=== PATIENT | female | born 1935 | race Caucasian/White ===

== ENCOUNTER 2018-04-04 11:11 | Inpatient (IN) | payer MEDICARE ==
[2018-04-04 11:15] VITALS: BMI 16.6
[2018-04-04] MEDS ORDERED: Sodium Chloride 0.9% 500 ML IV STA (11:29)
[2018-04-04 12:02] LABS: BASO % 0.3 % (0.0-2.0); EOS % 0.2 % (0.0-4.0); HEMOGLOBIN 11.5 g/dL (11.0-16.0); LYMPH # 0.7 K/uL (1.0-4.3); LYMPH % 10.8 % (20.0-40.0); MEAN CORPUSCULAR HEMOGLOBIN 29.8 pg (27.0-31.0); MEAN CORPUSCULAR HGB CONC 33.3 g/dL (33.0-37.0); MEAN PLATELET VOLUME 9.7 fL (7.2-11.7); MONO # 0.3 K/uL (0.0-0.8); MONO % 4.3 % (0.0-10.0); NEUT # 5.3 K/uL (1.8-7.0); NEUT % 84.4 % (50.0-75.0); RBC 3.87 Mil/uL (3.80-5.20); RED CELL DISTRIBUTION WIDTH 13.2 % (11.5-14.5)
[2018-04-04 12:03] LABS: MEAN CELL VOLUME 89.5 fL (81.0-99.0); WHITE BLOOD COUNT 6.3 K/uL (4.8-10.8)
[2018-04-04 12:12] LABS: INR 1.1; PROTHROMBIN TIME 11.8 SECONDS (9.7-12.2)
[2018-04-04 12:22] LABS: ALB/GLOB RATIO 1.5 (1.0-2.1); ALBUMIN 4.1 g/dL (3.5-5.0); ALT/SGPT 32 U/L (9-52); AST/SGOT 19 U/L (14-36); BLOOD UREA NITROGEN 17 mg/dL (7-17); CALCIUM 8.8 mg/dl (8.6-10.4); GFR NON-AFRICAN AMERICAN 60
--- NOTE | 2018-04-04 12:43 | C.PDOC ---
History Of Present Illness 83 y/o female presents to the ER complaining of abdominal cramping and back pain. Contrary to triage, patient states that she does not have "skin cancer and undergoing chemotherapy." She reports that she has history of colon cancer and she is currently undergoing radiation therapy. She missed her radiation therapy yesterday and today because she had abdominal cramping and rectal bleeding. As per daughter, patient had blood clots without stool. Of note, patient's PMD is and GI is . Time Seen by Provider: 04/04/18 11:28 Chief Complaint (Nursing): GI Problem History Per: Patient, Family History/Exam Limitations: no limitations Onset/Duration Of Symptoms: Days Current Symptoms Are (Timing): Still Present Severity: Moderate Past Medical History Reviewed: Historical Data, Nursing Documentation, Vital Signs Vital Signs: Last Vital Signs Temp 97.8 F 04/04/18 15:54 Pulse 84 04/04/18 15:54 Resp 20 04/04/18 15:54 BP 110/58 L 04/04/18 15:54 Pulse Ox 99 04/04/18 17:52 - Medical History PMH: Arthritis, Asthma, Colonic Polyps, Diabetes, Gastritis (MILD), HIV, HTN, Hypercholesterolemia Denies: Chronic Kidney Disease, TIA Other Surgeries: Hx of surgeries - [facility] Procedures GAIT TRAINING/FUNCTIONAL AMBULATION TREATMENT (12/22/15) HOME MANAGEMENT TREATMENT (12/22/15) THERAPEUTIC EXERCISE TREATMENT OF MUSCULOSK LOW BACK/LE (12/22/15) Family History: States: No Known Family Hx - Social History Hx Tobacco Use: No Hx Alcohol Use: No Hx Substance Use: No - Immunization History Hx Tetanus Toxoid Vaccination: Yes Hx Influenza Vaccination: No Hx Pneumococcal Vaccination: Yes Review Of Systems Except As Marked, All Systems Reviewed And Found Negative. Constitutional: Negative for: Fever, Chills Gastrointestinal: Positive for: Abdominal Pain, Hematochezia. Negative for: Nausea, Vomiting Physical Exam - Physical Exam Appears: Other (clinically ill, very thin) Skin: Normal Color, Warm, Dry Head: Atraumatic, Normacephalic Eye(s): bilateral: Normal Inspection Nose: Normal Oral Mucosa: Moist Neck: Supple Chest: Symmetrical Cardiovascular: Rhythm Regular Respiratory: Normal Breath Sounds, No Rales, No Rhonchi, No Wheezing Gastrointestinal/Abdominal: Normal Exam, Soft, No Tenderness, No Guarding, No Rebound Rectal: Other (blood in stool, no active bleeding) Neurological/Psych: Oriented x3, Normal Speech ED Course And Treatment - Laboratory Results Result Diagrams: 04/04/18 11:57 04/04/18 11:57 O2 Sat by Pulse Oximetry: 99 (RA) Pulse Ox Interpretation: Normal - CT Scan/US Abdomen/pelvis CT Other Rad Studies (CT/US): Read By Radiologist, Radiology Report Reviewed CT/US Interpretation: Accession No. : [id number]. Patient Name / ID : LEXY Jimenez / [id number]. Exam Date : 04/04/2018 16:16:37 ( Approved ). Study Comment : Sex / Age : F / [id number]. Creator : Carmen Rangel. Dictator : Myles Nelson MD. Corn Picker : Educational Assistant Teacher : Myles Nelson MD. Approver2 : Report Date : 04/04/2018 16:31:14. My Comment : . Date of service: 04/04/2018. PROCEDURE: CT Abdomen and Pelvis with contrast. HISTORY : abd pain/rectal bleeding. COMPARISON: None. TECHNIQUE: Contrast dose: 100 mL Visipaque 320. Radiation dose: Total exam DLP = 202.2 mGy-cm. This CT exam was performed using one or more of the following dose reduction techniques : Automated exposure control, adjustment of the mA and/or kV according to patient size, and/or use of iterative reconstruction technique. FINDINGS: LOWER THORAX: Unremarkable. LIVER: Unremarkable. No gross lesion or ductal dilatation. GALLBLADDER AND BILE DUCTS: Unremarkable. PANCREAS: Unremarkable. No gross lesion or ductal dilatation. SPLEEN: Unremarkable. ADRENALS: Unremarkable. No mass. KIDNEYS AND URETERS: Unremarkable. No hydronephrosis. No solid mass. VASCULATURE: Unremarkable. No aortic aneurysm. BOWEL: Marked circumferential symmetric rectal wall thickening. Extensive amount of retained colonic stool. Nonspecific prominence of the ileocecal valve. No obstruction. No gross mural thickening. APPENDIX: Normal appendix. PERITONEUM: Unremarkable. No free fluid. No free air. LYMPH NODES: Unremarkable. No enlarged lymph nodes. BLADDER: Unremarkable. REPRODUCTIVE: Unremarkable. BONES: No acute fracture. Degenerative changes. OTHER FINDINGS : None. IMPRESSION: Marked circumferential symmetric rectal wall thickening likely related to proctitis with malignancy not excluded. Direct visualization could be considered after resolution of the acute issues. Extensive amount of retained colonic stool. Nonspecific prominence of the ileocecal valve. Progress Note: Labs ordered. Patient treated with Morphine IV and IV Fluids. Case discussed with , GI who requested CT of abdomen. Result of CT was d/w . Case was d/w patient's PMD who instructed to admit patient to 's service for observation. Case was d/w who accepted patient to his service for observation. Disposition - Disposition Disposition Time: 17:51 Condition: FAIR - Clinical Impression Clinical Impression: Rectal bleeding, Colon cancer - PA / HARNESSMAKER / Resident Statement MD/DO has reviewed & agrees with the documentation as recorded. - Scribe Statement The provider has reviewed the documentation as recorded by the Isabel Wilson Provider Attestation All medical record entries made by the Isabel were at my direction and personally dictated by me. I have reviewed the chart and agree that the record accurately reflects my personal performance of the history, physical exam, medical decision making, and the department course for this patient. I have also personally directed, reviewed, and agree with the discharge instructions and disposition. Decision To Admit - Pt Status Changed To: Hospital Disposition Of: Observation - . Bed Request Type: Regular Admitting Physician: Christopher Argueta Patient Diagnosis: Rectal bleeding, Colon cancer
[2018-04-04] MEDS ORDERED: Iohexol 240 (50 ml) PO STA (13:13)
[2018-04-04] MEDS ORDERED: Iohexol 240 (50 ml) ONE (13:39)
[2018-04-04] MEDS ORDERED: Iodixanol 320 MG/ML 100 ML BOTTLE IV ONE (15:59)
--- NOTE | 2018-04-04 16:46 | CT ---
Date of service: 04/04/2018 PROCEDURE: CT Abdomen and Pelvis with contrast HISTORY: abd pain/rectal bleeding COMPARISON: None. TECHNIQUE: Contrast dose: 100 mL Visipaque 320 Radiation dose: Total exam DLP = 202.2 mGy-cm. This CT exam was performed using one or more of the following dose reduction techniques: Automated exposure control, adjustment of the mA and/or kV according to patient size, and/or use of iterative reconstruction technique. FINDINGS: LOWER THORAX: Unremarkable. LIVER: Unremarkable. No gross lesion or ductal dilatation. GALLBLADDER AND BILE DUCTS: Unremarkable. PANCREAS: Unremarkable. No gross lesion or ductal dilatation. SPLEEN: Unremarkable. ADRENALS: Unremarkable. No mass. KIDNEYS AND URETERS: Unremarkable. No hydronephrosis. No solid mass. VASCULATURE: Unremarkable. No aortic aneurysm. BOWEL: Marked circumferential symmetric rectal wall thickening. Extensive amount of retained colonic stool. Nonspecific prominence of the ileocecal valve. No obstruction. No gross mural thickening. APPENDIX: Normal appendix. PERITONEUM: Unremarkable. No free fluid. No free air. LYMPH NODES: Unremarkable. No enlarged lymph nodes. BLADDER: Unremarkable. REPRODUCTIVE: Unremarkable. BONES: No acute fracture. Degenerative changes. OTHER FINDINGS: None. IMPRESSION: Marked circumferential symmetric rectal wall thickening likely related to proctitis with malignancy not excluded. Direct visualization could be considered after resolution of the acute issues. Extensive amount of retained colonic stool. Nonspecific prominence of the ileocecal valve.
[2018-04-04] MEDS: Sodium Chloride 0.9% 1,000 ML IV SCH (21:48)
[2018-04-05 07:01] LABS: BASO % 0.5 % (0.0-2.0); EOS # 0.1 K/uL (0.0-0.7); HEMOGLOBIN 10.3 g/dL (11.0-16.0); LYMPH # 1.2 K/uL (1.0-4.3); LYMPH % 21.9 % (20.0-40.0); MEAN CELL VOLUME 89.6 fL (81.0-99.0); MEAN CORPUSCULAR HGB CONC 33.5 g/dL (33.0-37.0); MEAN PLATELET VOLUME 9.6 fL (7.2-11.7); MONO # 0.5 K/uL (0.0-0.8); MONO % 9.9 % (0.0-10.0); NEUT # 3.7 K/uL (1.8-7.0); NEUT % 66.7 % (50.0-75.0); NRBC % 0.1 % (0.0-2.0); RBC 3.43 Mil/uL (3.80-5.20); RED CELL DISTRIBUTION WIDTH 13.7 % (11.5-14.5); WHITE BLOOD COUNT 5.5 K/uL (4.8-10.8)
[2018-04-05] MEDS: Sodium Chloride 0.9% 1,000 ML IV SCH ×2 (07:15→18:00)
[2018-04-05] MEDS: Lopinavir/Ritonavir Tab PO SCH ×2 (09:29→17:31)
--- NOTE | 2018-04-05 11:05 | CP.PCM.CON ---
History of Present Illness - History of Present Illness History of Present Illness: This is an 83 year old woman with history of squamous cell carcinoma of the anus admitted with rectal bleeding. Patient was in her usual state of health until November of this year when she noted constipation, bright red blood per rectum, and rectal pain after defecation. Colonoscopy 01/20/18 showed a circumferential lesion of the distal rectum; biopsy showed squamous cell carcinoma. She was evaluated by Dr. Méndez and Dr. Aguilar, and treatment was initiated on 02/17/18 with Xeloda and radiation to the anal region and lower pelvic lymph nodes. Patient did well until the day prior to admission, when she began to pass bright red blood per rectum. She has the urge to defecate frequently, and continues to pass blood every hour without stool. she complains of soreness in the lower abdomen and rectum. She denies having fever, nausea, vomiting, difficulty swallowing, heartburn. Hemoglobin was 11.5 on admission, and was 10.3 when repeated this morning. Review of Systems - Review of Systems All systems: reviewed and no additional remarkable complaints except - Constitutional Constitutional: absent: Chills, Fever - Gastrointestinal Gastrointestinal: Abdominal Pain, Hematochezia. absent: Dysphagia, Heartburn, Nausea, Vomiting Past Patient History - Tetanus Immunizations Tetanus Immunization: Unknown - Past Medical History & Family History Past Medical History?: Yes - Past Social History Smoking Status: Never Smoked - CARDIAC Hx Hypercholesterolemia: Yes Hx Hypertension: Yes - PULMONARY Hx Asthma: Yes - NEUROLOGICAL Hx Transient Ischemic Attacks (TIA): No - HEENT Hx HEENT Problems: No - RENAL Hx Chronic Kidney Disease: No - ENDOCRINE/METABOLIC Hx Endocrine Disorders: Yes Hx Diabetes Mellitus Type 2: Yes - HEMATOLOGICAL/ONCOLOGICAL Hx Human Immunodeficiency Virus (HIV): Yes - INTEGUMENTARY Hx Dermatological Problems: No - MUSCULOSKELETAL/RHEUMATOLOGICAL Hx Arthritis: Yes - GASTROINTESTINAL Hx Gastritis: Yes (MILD) - GENITOURINARY/GYNECOLOGICAL Hx Genitourinary Disorders: Yes Hx Urinary Tract Infection: Yes - PSYCHIATRIC Hx Substance Use: No - SURGICAL HISTORY Hx Surgeries: Yes Hx Hysterectomy: Yes - ANESTHESIA Hx Anesthesia: Yes Hx Anesthesia Reactions: No Hx Malignant Hyperthermia: No Meds Allergies/Adverse Reactions: Allergies Allergy/AdvReac Type Severity Reaction Status Date / Time Penicillins Allergy Verified 04/04/18 11:15 - Medications Medications: Current Medications Home Med (Patient's Own Medication) 200 tab PO DAILY [facility] Stop: 04/26/18 10:01 Sodium Chloride (Sodium Chloride 0.9%) 1,000 mls @ 100 mls/hr IV .Q10H [facility] Last Admin: 04/05/18 07:15 Dose: 100 mls/hr Lopinavir/Ritonavir (Kaletra 200-50 Mg) 2 cap PO BID [facility] PRN Reason: Protocol Stop: 04/26/18 10:01 Last Admin: 04/05/18 09:29 Dose: Not Given Morphine Sulfate (Morphine) 2 mg IVP Q8 PRN PRN Reason: Pain, moderate (4-7) Last Admin: 04/05/18 01:00 Dose: 2 mg Nitrofurantoin Macrocrystals (Macrobid) 100 mg PO Q12H [facility] PRN Reason: Protocol Stop: 04/10/18 10:01 Last Admin: 04/05/18 09:29 Dose: Not Given Pantoprazole Sodium (Protonix Inj) 40 mg IVP Q12H [facility] Last Admin: 04/05/18 09:31 Dose: 40 mg Physical Exam - Constitutional Appears: No Acute Distress - Head Exam Head Exam: ATRAUMATIC, NORMOCEPHALIC - Eye Exam Eye Exam: EOMI, PERRL - Neck Exam Neck exam: Negative for: Lymphadenopathy, Thyromegaly - Respiratory Exam Respiratory Exam: NORMAL BREATHING PATTERN. absent: Rales, Rhonchi, Wheezes - Cardiovascular Exam Cardiovascular Exam: REGULAR RHYTHM, +S1, +S2. absent: Gallop, Rubs, Systolic Murmur - GI/Abdominal Exam GI & Abdominal Exam: Normal Bowel Sounds, Soft. absent: Mass, Organomegaly, Tenderness - Rectal Exam Rectal Exam: Deferred - Extremities Exam Extremities exam: Negative for: calf tenderness, pedal edema Results - Vital Signs Recent Vital Signs: Last Vital Signs Temp 97.2 F L 04/04/18 23:19 Pulse 62 04/04/18 23:19 Resp 18 04/04/18 23:19 BP 120/70 04/04/18 23:19 Pulse Ox 97 04/05/18 07:00 - Labs Result Diagrams: 04/05/18 06:46 04/04/18 11:57 Labs: Laboratory Results - last 24 hr 04/04/18 04/04/18 04/04/18 11:57 11:57 11:57 WBC 6.3 D RBC 3.87 Hgb 11.5 Hct 34.6 MCV 89.5 D MCH 29.8 MCHC 33.3 RDW 13.2 Plt Count 193 MPV 9.7 Neut % (Auto) 84.4 H Lymph % (Auto) 10.8 L [place] % (Auto) 4.3 Eos % (Auto) 0.2 Baso % (Auto) 0.3 Neut # (Auto) 5.3 Lymph # (Auto) 0.7 L [place] # (Auto) 0.3 Eos # (Auto) 0.0 Baso # (Auto) 0.0 PT 11.8 INR 1.1 APTT 30 Sodium Potassium Chloride Carbon Dioxide Anion Gap BUN Creatinine Est GFR ( Amer) Est GFR (Non-Af Amer) POC Glucose (mg/dL) Random Glucose Calcium Total Bilirubin AST ALT Alkaline Phosphatase Total Protein Albumin Globulin Albumin/Globulin Ratio Stool Occult Blood Positive H Blood Type Antibody Screen 04/04/18 04/04/18 04/04/18 11:57 11:57 21:26 WBC RBC Hgb Hct MCV MCH MCHC RDW Plt Count MPV Neut % (Auto) Lymph % (Auto) [place] % (Auto) Eos % (Auto) Baso % (Auto) Neut # (Auto) Lymph # (Auto) [place] # (Auto) Eos # (Auto) Baso # (Auto) PT INR APTT Sodium 140 Potassium 4.6 Chloride 105 Carbon Dioxide 25 Anion Gap 15 BUN 17 Creatinine 0.9 Est GFR ( Amer) > 60 Est GFR (Non-Af Amer) 60 POC Glucose (mg/dL) 134 H Random Glucose 146 H Calcium 8.8 Total Bilirubin 0.5 AST 19 ALT 32 Alkaline Phosphatase 90 Total Protein 6.7 Albumin 4.1 Globulin 2.7 Albumin/Globulin Ratio 1.5 Stool Occult Blood Blood Type B POSITIVE Antibody Screen Negative 04/05/18 04/05/18 06:46 07:13 WBC 5.5 RBC 3.43 L Hgb 10.3 L Hct 30.7 L MCV 89.6 MCH 30.0 MCHC 33.5 RDW 13.7 Plt Count 193 MPV 9.6 Neut % (Auto) 66.7 Lymph % (Auto) 21.9 [place] % (Auto) 9.9 Eos % (Auto) 1.0 Baso % (Auto) 0.5 Neut # (Auto) 3.7 Lymph # (Auto) 1.2 [place] # (Auto) 0.5 Eos # (Auto) 0.1 Baso # (Auto) 0.0 PT INR APTT Sodium Potassium Chloride Carbon Dioxide Anion Gap BUN Creatinine Est GFR ( Amer) Est GFR (Non-Af Amer) POC Glucose (mg/dL) 113 H Random Glucose Calcium Total Bilirubin AST ALT Alkaline Phosphatase Total Protein Albumin Globulin Albumin/Globulin Ratio Stool Occult Blood Blood Type Antibody Screen Assessment & Plan (1) Rectal bleeding Assessment and Plan: Patient is nearing completion of the course of Xeloda plus radiation. 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 Will check for infection with the appropriate stool studies. There are no approved treatments for acute radiation proctitis, though short chain fatty acid enemas ( sodium butyrate) have been used. Follow CBC. Status: Acute
--- NOTE | 2018-04-05 17:54 | CP.PCM.CON ---
History of Present Illness - History of Present Illness History of Present Illness: INFECTIOUS DISEASE CONSULTATION TOMASZ THOMPSON MD, FACP 04/05/2018 CHART REVIEWED PT EXAMINED CASE DISCUSSED 3T 359-A This is an 83 year old woman with history of squamous cell carcinoma of the anus admitted with rectal bleeding. Patient was in her usual state of health until November of this year when she noted constipation, bright red blood per rectum, and rectal pain after defecation. Colonoscopy 01/20/18 showed a circumferential lesion of the distal rectum; biopsy showed squamous cell carcinoma. She was evaluated by Dr. Méndez and Dr. Aguilar, and treatment was initiated on 02/17/18 with Xeloda and radiation to the anal region and lower pelvic lymph nodes. Patient did well until the day prior to admission, when she began to pass bright red blood per rectum. She has the urge to defecate frequently, and continues to pass blood every hour without stool. she complains of soreness in the lower abdomen and rectum. She denies having fever, nausea, vomiting, difficulty swallowing, heartburn. Hemoglobin was 11.5 on admission, and was 10.3 when repeated this morning. 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 THANK YOU. WILL RESEE NEEDED. Past Patient History - Tetanus Immunizations Tetanus Immunization: Unknown - Past Medical History & Family History Past Medical History?: Yes - Past Social History Smoking Status: Never Smoked - CARDIAC Hx Hypercholesterolemia: Yes Hx Hypertension: Yes - PULMONARY Hx Asthma: Yes - NEUROLOGICAL Hx Transient Ischemic Attacks (TIA): No - HEENT Hx HEENT Problems: No - RENAL Hx Chronic Kidney Disease: No - ENDOCRINE/METABOLIC Hx Endocrine Disorders: Yes Hx Diabetes Mellitus Type 2: Yes - HEMATOLOGICAL/ONCOLOGICAL Hx Human Immunodeficiency Virus (HIV): Yes - INTEGUMENTARY Hx Dermatological Problems: No - MUSCULOSKELETAL/RHEUMATOLOGICAL Hx Arthritis: Yes - GASTROINTESTINAL Hx Gastritis: Yes (MILD) - GENITOURINARY/GYNECOLOGICAL Hx Genitourinary Disorders: Yes Hx Urinary Tract Infection: Yes - PSYCHIATRIC Hx Substance Use: No - SURGICAL HISTORY Hx Surgeries: Yes Hx Hysterectomy: Yes - ANESTHESIA Hx Anesthesia: Yes Hx Anesthesia Reactions: No Hx Malignant Hyperthermia: No Meds Allergies/Adverse Reactions: Allergies Allergy/AdvReac Type Severity Reaction Status Date / Time Penicillins Allergy Verified 04/04/18 11:15 - Medications Medications: Current Medications Home Med (Patient's Own Medication) 200 tab PO DAILY [facility] Stop: 04/26/18 10:01 Sodium Chloride (Sodium Chloride 0.9%) 1,000 mls @ 100 mls/hr IV .Q10H [facility] Last Admin: 04/05/18 07:15 Dose: 100 mls/hr Lopinavir/Ritonavir (Kaletra 200-50 Mg) 2 cap PO BID [facility] PRN Reason: Protocol Stop: 04/26/18 10:01 Last Admin: 04/05/18 17:31 Dose: 2 cap Morphine Sulfate (Morphine) 2 mg IVP Q8 PRN PRN Reason: Pain, moderate (4-7) Last Admin: 04/05/18 14:43 Dose: 2 mg Nitrofurantoin Macrocrystals (Macrobid) 100 mg PO Q12H [facility] PRN Reason: Protocol Stop: 04/10/18 10:01 Last Admin: 04/05/18 09:29 Dose: Not Given Pantoprazole Sodium (Protonix Inj) 40 mg IVP Q12H [facility] Last Admin: 04/05/18 09:31 Dose: 40 mg Results - Vital Signs Recent Vital Signs: Last Vital Signs Temp 99.0 F 04/05/18 16:31 Pulse 81 04/05/18 16:31 Resp 18 04/05/18 16:31 BP 107/59 L 04/05/18 16:31 Pulse Ox 98 04/05/18 16:31 - Labs Result Diagrams: 04/05/18 06:46 04/04/18 11:57 Labs: Laboratory Results - last 24 hr 04/04/18 04/05/18 04/05/18 21:26 06:46 07:13 WBC 5.5 RBC 3.43 L Hgb 10.3 L Hct 30.7 L MCV 89.6 MCH 30.0 MCHC 33.5 RDW 13.7 Plt Count 193 MPV 9.6 Neut % (Auto) 66.7 Lymph % (Auto) 21.9 [place] % (Auto) 9.9 Eos % (Auto) 1.0 Baso % (Auto) 0.5 Neut # (Auto) 3.7 Lymph # (Auto) 1.2 [place] # (Auto) 0.5 Eos # (Auto) 0.1 Baso # (Auto) 0.0 ESR 9 POC Glucose (mg/dL) 134 H 113 H C-Reactive Protein Stool Leukocytes, Qual C. difficile Ag & Toxin 04/05/18 04/05/18 04/05/18 11:09 12:49 14:57 WBC RBC Hgb Hct MCV MCH MCHC RDW Plt Count MPV Neut % (Auto) Lymph % (Auto) [place] % (Auto) Eos % (Auto) Baso % (Auto) Neut # (Auto) Lymph # (Auto) [place] # (Auto) Eos # (Auto) Baso # (Auto) ESR POC Glucose (mg/dL) 111 H C-Reactive Protein 6.00 Stool Leukocytes, Qual Positive H C. difficile Ag & Toxin 04/05/18 04/05/18 14:57 16:54 WBC RBC Hgb Hct MCV MCH MCHC RDW Plt Count MPV Neut % (Auto) Lymph % (Auto) [place] % (Auto) Eos % (Auto) Baso % (Auto) Neut # (Auto) Lymph # (Auto) [place] # (Auto) Eos # (Auto) Baso # (Auto) ESR POC Glucose (mg/dL) 105 C-Reactive Protein Stool Leukocytes, Qual C. difficile Ag & Toxin Negative
--- NOTE | 2018-04-05 20:35 | CP.PCM.HP ---
History of Present Illness - History of Present Illness History of Present Illness: Chief command: Rectal bleeding and pain HPI: 83-year-old female with a history of asthma, history of diabetes, gastritis, HIV , hypertension, hypercholesteremia, recently diagnosed with the annual cancer, status post radiation treatment currently ongoing. Patient for the last 3 days was unable to do the radiation treatment because of the pain in the pelvic area, associated with episodes of diarrhea, with also increasingly bleeding noted. Each time patient is having difficulty in going to the bathroom, associated with this some pain, and also diarrhea like and mostly some blood noted with that. She also has a some discomfort in the lower abdominal area. She is feeling extremely uncomfortable. She was not able to continue the radiation because of that for the last 3 days. Patient also scheduled to have chemotherapy next week. She is not having any abdominal pain otherwise, no chest pain, no shortness of breath, otherwise he is feeling well, but poor appetite noted. Patient has a history of diabetes also has a history of HIV on medications Past medical history: Diabetes, hypertension, hypercholesteremia, history of asthma as well as history of HIV Surgical history Patient underwent a colonoscopy recently. Family history noncontributory Medications reviewed from the chart. Personal history: Nonsmoker nonalcoholic. Review of system: Patient is somewhat feeling sick. Abdominal pain, diarrhea, blurred noted. No nausea vomiting. No chest pain or shortness of breath On examination: Vital signs stable. Afebrile. Blood pressure 120/70. Heart rate is 80 6P Respiration is 18 saturation 98% Chest good air entry bilaterally regular heart sound nontender abdomen, minimal lower abdominal discomfort noted. No pedal edema Labs reviewed CMP is normal. Mild elevation of the glucose noted. Hemoglobin is 11.5. Platelet is normal. PT/INR is normal. CT scan of the abdomen and pelvis showing evidence of rectal wall thickening, likely proctitis, in the setting of ranal cancer, radiation recent, radiation proctitis cannot be ruled out. Assessment and recommendation: 83-year-old female with a history of hypertension diabetes hypercholesteremia, history of HIV recently diagnosed with anal cancer, status post current radiation, now suffering from rectal bleeding. Likely differential diagnosis includes radiation proctitis. Underlying infectious process cannot be ruled out. Will get the GI, infectious disease evaluation. Oncological follow-up. Monitor the hemoglobin. DVT GI prophylaxis, will follow the patient. Present on Admission - Present on Admission Any Indicators Present on Admission: No History of DVT/PE: No History of Uncontrolled Diabetes: No Urinary Catheter: No Decubitus Ulcer Present: No Past Patient History - Tetanus Immunizations Tetanus Immunization: Unknown - Past Medical History & Family History Past Medical History?: Yes - Past Social History Smoking Status: Never Smoked - CARDIAC Hx Hypercholesterolemia: Yes Hx Hypertension: Yes - PULMONARY Hx Asthma: Yes - NEUROLOGICAL Hx Transient Ischemic Attacks (TIA): No - HEENT Hx HEENT Problems: No - RENAL Hx Chronic Kidney Disease: No - ENDOCRINE/METABOLIC Hx Endocrine Disorders: Yes Hx Diabetes Mellitus Type 2: Yes - HEMATOLOGICAL/ONCOLOGICAL Hx Human Immunodeficiency Virus (HIV): Yes - INTEGUMENTARY Hx Dermatological Problems: No - MUSCULOSKELETAL/RHEUMATOLOGICAL Hx Arthritis: Yes - GASTROINTESTINAL Hx Gastritis: Yes (MILD) - GENITOURINARY/GYNECOLOGICAL Hx Genitourinary Disorders: Yes Hx Urinary Tract Infection: Yes - PSYCHIATRIC Hx Substance Use: No - SURGICAL HISTORY Hx Surgeries: Yes Hx Hysterectomy: Yes - ANESTHESIA Hx Anesthesia: Yes Hx Anesthesia Reactions: No Hx Malignant Hyperthermia: No Meds Allergies/Adverse Reactions: Allergies Allergy/AdvReac Type Severity Reaction Status Date / Time Penicillins Allergy Verified 04/04/18 11:15 Results - Vital Signs Recent Vital Signs: Last Vital Signs Temp 99.0 F 04/05/18 16:31 Pulse 81 04/05/18 16:31 Resp 18 04/05/18 16:31 BP 107/59 L 04/05/18 16:31 Pulse Ox 98 04/05/18 16:31 - Labs Result Diagrams: 04/05/18 06:46 04/04/18 11:57 Labs: Laboratory Results - last 24 hr 04/04/18 04/05/18 04/05/18 21:26 06:46 07:13 WBC 5.5 RBC 3.43 L Hgb 10.3 L Hct 30.7 L MCV 89.6 MCH 30.0 MCHC 33.5 RDW 13.7 Plt Count 193 MPV 9.6 Neut % (Auto) 66.7 Lymph % (Auto) 21.9 [place] % (Auto) 9.9 Eos % (Auto) 1.0 Baso % (Auto) 0.5 Neut # (Auto) 3.7 Lymph # (Auto) 1.2 [place] # (Auto) 0.5 Eos # (Auto) 0.1 Baso # (Auto) 0.0 ESR 9 POC Glucose (mg/dL) 134 H 113 H C-Reactive Protein Stool Leukocytes, Qual C. difficile Ag & Toxin 04/05/18 04/05/18 04/05/18 11:09 12:49 14:57 WBC RBC Hgb Hct MCV MCH MCHC RDW Plt Count MPV Neut % (Auto) Lymph % (Auto) [place] % (Auto) Eos % (Auto) Baso % (Auto) Neut # (Auto) Lymph # (Auto) [place] # (Auto) Eos # (Auto) Baso # (Auto) ESR POC Glucose (mg/dL) 111 H C-Reactive Protein 6.00 Stool Leukocytes, Qual Positive H C. difficile Ag & Toxin 04/05/18 04/05/18 14:57 16:54 WBC RBC Hgb Hct MCV MCH MCHC RDW Plt Count MPV Neut % (Auto) Lymph % (Auto) [place] % (Auto) Eos % (Auto) Baso % (Auto) Neut # (Auto) Lymph # (Auto) [place] # (Auto) Eos # (Auto) Baso # (Auto) ESR POC Glucose (mg/dL) 105 C-Reactive Protein Stool Leukocytes, Qual C. difficile Ag & Toxin Negative
--- NOTE | 2018-04-05 20:37 | CP.PCM.PN ---
Subjective - Date & Time of Evaluation Date of Evaluation: 04/05/18 Time of Evaluation: 20:35 - Subjective Subjective: Patient today having minimal pain. Still having some bleeding. No chest pain or shortness of breath. Seen by GI. Seen by ID On examination: Patient is vital signs stable. Chest bilateral good air entry. Regular heart sound. Nontender abdomen. The episodes of bleeding still present Hemoglobin is stable today. We'll continue to monitor. Follow-up with the GI. Objective - Vital Signs/Intake and Output Vital Signs (last 24 hours): Temp Pulse Resp BP Pulse Ox 99.0 F 81 18 107/59 L 98 04/05/18 16:31 04/05/18 16:31 04/05/18 16:31 04/05/18 16:31 04/05/18 16:31 Intake and Output: 04/05/18 04/06/18 18:59 06:59 Intake Total 800 Output Total 6 Balance 794 - Medications Medications: Current Medications Home Med (Patient's Own Medication) 200 tab PO DAILY [facility] Stop: 04/26/18 10:01 Sodium Chloride (Sodium Chloride 0.9%) 1,000 mls @ 100 mls/hr IV .Q10H [facility] Last Admin: 04/05/18 07:15 Dose: 100 mls/hr Lopinavir/Ritonavir (Kaletra 200-50 Mg) 2 cap PO BID LISA PRN Reason: Protocol Stop: 04/26/18 10:01 Last Admin: 04/05/18 17:31 Dose: 2 cap Morphine Sulfate (Morphine) 2 mg IVP Q8 PRN PRN Reason: Pain, moderate (4-7) Last Admin: 04/05/18 14:43 Dose: 2 mg Nitrofurantoin Macrocrystals (Macrobid) 100 mg PO Q12H LISA PRN Reason: Protocol Stop: 04/10/18 10:01 Last Admin: 04/05/18 09:29 Dose: Not Given Pantoprazole Sodium (Protonix Inj) 40 mg IVP Q12H [facility] Last Admin: 04/05/18 09:31 Dose: 40 mg - Labs Labs: 04/05/18 06:46 04/04/18 11:57 PT 11.8 SECONDS (9.7-12.2) 04/04/18 11:57 INR 1.1 04/04/18 11:57 APTT 30 SECONDS (21-34) 04/04/18 11:57
--- NOTE | 2018-04-05 21:40 | CP.PCM.CON ---
History of Present Illness - History of Present Illness History of Present Illness: 83 yo woman with a history of newly diagnosed, localized rectal cancer, admitted with bloody diarrhea, associated with pain. Her bowel movements are still bloody, but her Hgb has not dropped significantly so far. She denies fever, chills at home, no nausea or vomiting, says she has lost weight. Past Patient History - Tetanus Immunizations Tetanus Immunization: Unknown - Past Medical History & Family History Past Medical History?: Yes - Past Social History Smoking Status: Never Smoked - CARDIAC Hx Hypercholesterolemia: Yes Hx Hypertension: Yes - PULMONARY Hx Asthma: Yes - NEUROLOGICAL Hx Transient Ischemic Attacks (TIA): No - HEENT Hx HEENT Problems: No - RENAL Hx Chronic Kidney Disease: No - ENDOCRINE/METABOLIC Hx Endocrine Disorders: Yes Hx Diabetes Mellitus Type 2: Yes - HEMATOLOGICAL/ONCOLOGICAL Hx Human Immunodeficiency Virus (HIV): Yes - INTEGUMENTARY Hx Dermatological Problems: No - MUSCULOSKELETAL/RHEUMATOLOGICAL Hx Arthritis: Yes - GASTROINTESTINAL Hx Gastritis: Yes (MILD) - GENITOURINARY/GYNECOLOGICAL Hx Genitourinary Disorders: Yes Hx Urinary Tract Infection: Yes - PSYCHIATRIC Hx Substance Use: No - SURGICAL HISTORY Hx Surgeries: Yes Hx Hysterectomy: Yes - ANESTHESIA Hx Anesthesia: Yes Hx Anesthesia Reactions: No Hx Malignant Hyperthermia: No Meds Allergies/Adverse Reactions: Allergies Allergy/AdvReac Type Severity Reaction Status Date / Time Penicillins Allergy Verified 04/04/18 11:15 - Medications Medications: Current Medications Home Med (Patient's Own Medication) 200 tab PO DAILY [facility] Stop: 04/26/18 10:01 Sodium Chloride (Sodium Chloride 0.9%) 1,000 mls @ 100 mls/hr IV .Q10H [facility] Last Admin: 04/05/18 07:15 Dose: 100 mls/hr Lopinavir/Ritonavir (Kaletra 200-50 Mg) 2 cap PO BID LISA PRN Reason: Protocol Stop: 04/26/18 10:01 Last Admin: 04/05/18 17:31 Dose: 2 cap Morphine Sulfate (Morphine) 2 mg IVP Q8 PRN PRN Reason: Pain, moderate (4-7) Last Admin: 04/05/18 14:43 Dose: 2 mg Nitrofurantoin Macrocrystals (Macrobid) 100 mg PO Q12H [facility]ISA PRN Reason: Protocol Stop: 04/10/18 10:01 Last Admin: 04/05/18 09:29 Dose: Not Given Pantoprazole Sodium (Protonix Inj) 40 mg IVP Q12H [facility] Last Admin: 04/05/18 09:31 Dose: 40 mg Results - Vital Signs Recent Vital Signs: Last Vital Signs Temp 99.0 F 04/05/18 16:31 Pulse 81 04/05/18 16:31 Resp 18 04/05/18 16:31 BP 107/59 L 04/05/18 16:31 Pulse Ox 98 04/05/18 16:31 - Labs Result Diagrams: 04/05/18 06:46 04/04/18 11:57 Labs: Laboratory Results - last 24 hr 04/05/18 04/05/18 04/05/18 06:46 07:13 11:09 WBC 5.5 RBC 3.43 L Hgb 10.3 L Hct 30.7 L MCV 89.6 MCH 30.0 MCHC 33.5 RDW 13.7 Plt Count 193 MPV 9.6 Neut % (Auto) 66.7 Lymph % (Auto) 21.9 [place] % (Auto) 9.9 Eos % (Auto) 1.0 Baso % (Auto) 0.5 Neut # (Auto) 3.7 Lymph # (Auto) 1.2 [place] # (Auto) 0.5 Eos # (Auto) 0.1 Baso # (Auto) 0.0 ESR 9 POC Glucose (mg/dL) 113 H 111 H C-Reactive Protein Stool Leukocytes, Qual C. difficile Ag & Toxin 04/05/18 04/05/18 04/05/18 12:49 14:57 14:57 WBC RBC Hgb Hct MCV MCH MCHC RDW Plt Count MPV Neut % (Auto) Lymph % (Auto) [place] % (Auto) Eos % (Auto) Baso % (Auto) Neut # (Auto) Lymph # (Auto) [place] # (Auto) Eos # (Auto) Baso # (Auto) ESR POC Glucose (mg/dL) C-Reactive Protein 6.00 Stool Leukocytes, Qual Positive H C. difficile Ag & Toxin Negative 04/05/18 04/05/18 16:54 21:29 WBC RBC Hgb Hct MCV MCH MCHC RDW Plt Count MPV Neut % (Auto) Lymph % (Auto) [place] % (Auto) Eos % (Auto) Baso % (Auto) Neut # (Auto) Lymph # (Auto) [place] # (Auto) Eos # (Auto) Baso # (Auto) ESR POC Glucose (mg/dL) 105 89 C-Reactive Protein Stool Leukocytes, Qual C. difficile Ag & Toxin Assessment & Plan (1) Colon cancer Assessment and Plan: 83 yo woman with localized colorectal cancer, admitted with rectal bleeding, unclear if this is as a result of the radiation or the cancer. will discuss with rad-onc on Saturday, because the patient needs to continue her treatments and will need transportation. Agree with close monitoring of CBC, transfuse PRN Status: Acute
[2018-04-06] MEDS: Sodium Chloride 0.9% 1,000 ML IV SCH ×2 (04:15→09:44)
[2018-04-06 07:32] LABS: BASO % 0.8 % (0.0-2.0); EOS # 0.1 K/uL (0.0-0.7); EOS % 2.7 % (0.0-4.0); HEMOGLOBIN 8.4 g/dL (11.0-16.0); LYMPH % 28.4 % (20.0-40.0); MEAN CELL VOLUME 90.5 fL (81.0-99.0); MEAN CORPUSCULAR HEMOGLOBIN 29.9 pg (27.0-31.0); MEAN CORPUSCULAR HGB CONC 33.1 g/dL (33.0-37.0); MEAN PLATELET VOLUME 9.8 fL (7.2-11.7); MONO # 0.3 K/uL (0.0-0.8); MONO % 9.7 % (0.0-10.0); NEUT % 58.4 % (50.0-75.0); NRBC % 0.1 % (0.0-2.0); RBC 2.79 Mil/uL (3.80-5.20); RED CELL DISTRIBUTION WIDTH 13.3 % (11.5-14.5); WHITE BLOOD COUNT 3.5 K/uL (4.8-10.8)
[2018-04-06 08:04] LABS: ALB/GLOB RATIO 1.4 (1.0-2.1); ALBUMIN 3.3 g/dL (3.5-5.0); ALT/SGPT 27 U/L (9-52); AST/SGOT 20 U/L (14-36); BLOOD UREA NITROGEN 8 mg/dL (7-17); CALCIUM 8.2 mg/dl (8.6-10.4); GFR NON-AFRICAN AMERICAN > 60
--- NOTE | 2018-04-06 08:52 | CP.PCM.PN ---
Subjective - Date & Time of Evaluation Date of Evaluation: 04/06/18 Time of Evaluation: 08:48 - Subjective Subjective: Patient continues to pass blood per rectum, now every time she urinates. She denies having abdominal pain. The HGB dropped from 11.5 to 8.4. Objective - Vital Signs/Intake and Output Vital Signs (last 24 hours): Temp Pulse Resp BP Pulse Ox 98.7 F 67 20 101/61 98 04/05/18 23:50 04/05/18 23:50 04/05/18 23:50 04/05/18 23:50 04/06/18 07:46 Intake and Output: 04/06/18 04/06/18 06:59 18:59 Intake Total 1600 Balance 1600 - Medications Medications: Current Medications Home Med (Patient's Own Medication) 1 tab PO DAILY [facility] Stop: 04/26/18 22:16 Last Admin: 04/05/18 22:15 Dose: 1 tab Sodium Chloride (Sodium Chloride 0.9%) 1,000 mls @ 100 mls/hr IV .Q10H [facility] Last Admin: 04/06/18 04:15 Dose: 100 mls/hr Lopinavir/Ritonavir (Kaletra 200-50 Mg) 2 cap PO BID LISA PRN Reason: Protocol Stop: 04/26/18 10:01 Last Admin: 04/05/18 17:31 Dose: 2 cap Morphine Sulfate (Morphine) 2 mg IVP Q8 PRN PRN Reason: Pain, moderate (4-7) Last Admin: 04/05/18 14:43 Dose: 2 mg Nitrofurantoin Macrocrystals (Macrobid) 100 mg PO Q12H [facility]ISA PRN Reason: Protocol Stop: 04/10/18 10:01 Last Admin: 04/05/18 21:53 Dose: 100 mg Pantoprazole Sodium (Protonix Inj) 40 mg IVP Q12H [facility] Last Admin: 04/05/18 21:50 Dose: 40 mg - Labs Labs: 04/06/18 07:16 04/06/18 07:16 PT 11.8 SECONDS (9.7-12.2) 04/04/18 11:57 INR 1.1 04/04/18 11:57 APTT 30 SECONDS (21-34) 04/04/18 11:57 - Constitutional Appears: No Acute Distress - Head Exam Head Exam: ATRAUMATIC, NORMOCEPHALIC - Eye Exam Eye Exam: EOMI, PERRL - Neck Exam Neck Exam: absent: Lymphadenopathy, Thyromegaly - Respiratory Exam Respiratory Exam: NORMAL BREATHING PATTERN. absent: Rales, Rhonchi, Wheezes - Cardiovascular Exam Cardiovascular Exam: REGULAR RHYTHM, +S1, +S2. absent: Gallop, Rubs, Murmur - GI/Abdominal Exam GI & Abdominal Exam: Soft, Normal Bowel Sounds. absent: Tenderness, Mass, Organomegaly - Rectal Exam Rectal Exam: Deferred - Extremities Exam Extremities Exam: absent: Calf Tenderness, Pedal Edema Assessment and Plan (1) Rectal bleeding Assessment & Plan: Patient continues to bleed, though less frequently than yesterday. The hemoglobin has dropped to 8.4. Will repeat and transfuse as needed. Status: Acute
--- NOTE | 2018-04-06 09:19 | CP.PCM.PN ---
Subjective - Date & Time of Evaluation Date of Evaluation: 04/06/18 Time of Evaluation: 09:18 - Subjective Subjective: still having some bleeding each time she goes to some blood and oozing noted spoke ID will transfuse 2 units of brbc Objective - Vital Signs/Intake and Output Vital Signs (last 24 hours): Temp Pulse Resp BP Pulse Ox 98.7 F 67 20 101/61 98 04/05/18 23:50 04/05/18 23:50 04/05/18 23:50 04/05/18 23:50 04/06/18 07:46 Intake and Output: 04/06/18 04/06/18 06:59 18:59 Intake Total 1600 Balance 1600 - Medications Medications: Current Medications Home Med (Patient's Own Medication) 1 tab PO DAILY [facility] Stop: 04/26/18 22:16 Last Admin: 04/05/18 22:15 Dose: 1 tab Sodium Chloride (Sodium Chloride 0.9%) 1,000 mls @ 40 mls/hr IV .Q24H [facility] Lopinavir/Ritonavir (Kaletra 200-50 Mg) 2 cap PO BID LISA PRN Reason: Protocol Stop: 04/26/18 10:01 Last Admin: 04/05/18 17:31 Dose: 2 cap Morphine Sulfate (Morphine) 2 mg IVP Q8 PRN PRN Reason: Pain, moderate (4-7) Last Admin: 04/05/18 14:43 Dose: 2 mg Nitrofurantoin Macrocrystals (Macrobid) 100 mg PO Q12H LISA PRN Reason: Protocol Stop: 04/10/18 10:01 Last Admin: 04/05/18 21:53 Dose: 100 mg Pantoprazole Sodium (Protonix Inj) 40 mg IVP Q12H [facility] Last Admin: 04/05/18 21:50 Dose: 40 mg - Labs Labs: 04/06/18 07:16 04/06/18 07:16 PT 11.8 SECONDS (9.7-12.2) 04/04/18 11:57 INR 1.1 04/04/18 11:57 APTT 30 SECONDS (21-34) 04/04/18 11:57
[2018-04-06] MEDS: Lopinavir/Ritonavir Tab PO SCH ×2 (09:45→17:51)
[2018-04-06 19:37] LABS: BASO % 0.6 % (0.0-2.0); EOS # 0.1 K/uL (0.0-0.7); EOS % 2.4 % (0.0-4.0); HEMOGLOBIN 7.9 g/dL (11.0-16.0); LYMPH # 0.9 K/uL (1.0-4.3); LYMPH % 23.8 % (20.0-40.0); MEAN CELL VOLUME 90.3 fL (81.0-99.0); MEAN CORPUSCULAR HEMOGLOBIN 29.1 pg (27.0-31.0); MEAN CORPUSCULAR HGB CONC 32.2 g/dL (33.0-37.0); MEAN PLATELET VOLUME 9.4 fL (7.2-11.7); MONO # 0.4 K/uL (0.0-0.8); MONO % 9.4 % (0.0-10.0); NEUT # 2.5 K/uL (1.8-7.0); NEUT % 63.8 % (50.0-75.0); NRBC % 0.1 % (0.0-2.0); RBC 2.72 Mil/uL (3.80-5.20); RED CELL DISTRIBUTION WIDTH 13.7 % (11.5-14.5)
[2018-04-06] MEDS ORDERED: DiphenhydrAMINE 50 mg/ml Inj IVP ONE (22:41)
[2018-04-07] MEDS ORDERED: DiphenhydrAMINE 50 mg/ml Inj IVP ONE (00:30)
[2018-04-07] MEDS: Sodium Chloride 0.9% 1,000 ML IV SCH (09:54)
[2018-04-07] MEDS: Lopinavir/Ritonavir Tab PO SCH ×2 (10:22→17:31)
[2018-04-07 11:26] LABS: MEAN CELL VOLUME 88.6 fL (81.0-99.0); MEAN CORPUSCULAR HEMOGLOBIN 30.5 pg (27.0-31.0); MEAN CORPUSCULAR HGB CONC 34.5 g/dL (33.0-37.0); MEAN PLATELET VOLUME 9.5 fL (7.2-11.7); RBC 3.23 Mil/uL (3.80-5.20); RED CELL DISTRIBUTION WIDTH 13.3 % (11.5-14.5); WHITE BLOOD COUNT 4.3 K/uL (4.8-10.8)
[2018-04-07 11:36] LABS: HEMOGLOBIN 9.9 g/dL (11.0-16.0)
--- NOTE | 2018-04-07 16:15 | CP.PCM.PN ---
Subjective - Date & Time of Evaluation Date of Evaluation: 04/07/18 Time of Evaluation: 11:00 - Subjective Subjective: INFECTIOUS DISEASE PROGRESS NOTES TOMASZ THOMPSON MD, FACP 3T 359-A 04/06- CHART REVIEWED EXAMINATION APPRECIATED CASE DISCUSSED 83 YR OLD FEMALE WITH SQUAMOUS CELL CANCER OF THE ANUS/RECTUM PRESENTS WITH SIGNIFICANT RECTAL BLEEDING, CLINCIALLY SYMPTOMATIC AND WITH LOSS OF RBC/PAIN. TRANSFUSED YESTERDAY AND AWAITING GI/HEME/SX MANAGEMENT. HIV JAMA BOTH PT AND PHARMACY ACKNOWLEDGES THE NEED FOR HER RECEIVING HER HIV MEDICATIONS, DESCOVY AND KALETRA. Objective - Vital Signs/Intake and Output Vital Signs (last 24 hours): Temp Pulse Resp BP Pulse Ox 98.5 F 73 20 122/57 L 96 04/07/18 15:15 04/07/18 15:15 04/07/18 15:15 04/07/18 15:15 04/07/18 07:07 Intake and Output: 04/07/18 04/07/18 06:59 18:59 Intake Total 1320 800 Balance 1320 800 - Medications Medications: Current Medications Sodium Chloride (Sodium Chloride 0.9%) 1,000 mls @ 40 mls/hr IV .Q24H [facility] Last Admin: 04/07/18 09:54 Dose: Not Given Lopinavir/Ritonavir (Kaletra 200-50 Mg) 2 cap PO BID LISA PRN Reason: Protocol Stop: 04/26/18 10:01 Last Admin: 04/07/18 10:22 Dose: 2 cap Morphine Sulfate (Morphine) 2 mg IVP Q8 PRN PRN Reason: Pain, moderate (4-7) Last Admin: 04/05/18 14:43 Dose: 2 mg Nitrofurantoin Macrocrystals (Macrobid) 100 mg PO Q12H LISA PRN Reason: Protocol Stop: 04/10/18 10:01 Last Admin: 04/07/18 10:22 Dose: 100 mg [place] 200-25mg 1 ea PO DAILY [facility]ISA Stop: 04/26/18 22:16 Last Admin: 04/07/18 10:37 Dose: 1 ea Pantoprazole Sodium (Protonix Inj) 40 mg IVP Q12H [facility] Last Admin: 04/07/18 09:53 Dose: Not Given - Labs Labs: 04/07/18 11:09 04/06/18 07:16 PT 11.8 SECONDS (9.7-12.2) 04/04/18 11:57 INR 1.1 04/04/18 11:57 APTT 30 SECONDS (21-34) 04/04/18 11:57 Assessment and Plan (1) Rectal bleeding Assessment & Plan: SIGNIFICANT BLEEDING Status: Acute (2) Anorexia Status: Acute (3) Anxiety attack Status: Acute (4) UTI (urinary tract infection) Status: Acute (5) HIV disease Status: Chronic (6) Hypertension Status: Chronic
--- NOTE | 2018-04-07 21:18 | CP.PCM.PN ---
Subjective - Date & Time of Evaluation Date of Evaluation: 04/07/18 Time of Evaluation: 10:00 - Subjective Subjective: Patient continues to pass blood per rectum, each time she urinates. The lower abdominal pain is not as severe. She denies having nausea and vomiting. Objective - Vital Signs/Intake and Output Vital Signs (last 24 hours): Temp Pulse Resp BP Pulse Ox 98 F 72 18 125/70 99 04/07/18 17:33 04/07/18 17:33 04/07/18 17:33 04/07/18 17:33 04/07/18 16:00 Intake and Output: 04/07/18 04/08/18 18:59 06:59 Intake Total 900 Balance 900 - Medications Medications: Current Medications Home Med (Patient's Own Medication) 1 tab PO DAILY [facility] Stop: 04/26/18 22:16 Sodium Chloride (Sodium Chloride 0.9%) 1,000 mls @ 40 mls/hr IV .Q24H [facility] Last Admin: 04/07/18 09:54 Dose: Not Given Lopinavir/Ritonavir (Kaletra 200-50 Mg) 2 cap PO BID LISA PRN Reason: Protocol Stop: 04/26/18 10:01 Last Admin: 04/07/18 17:31 Dose: 2 cap Morphine Sulfate (Morphine) 2 mg IVP Q8 PRN PRN Reason: Pain, moderate (4-7) Last Admin: 04/05/18 14:43 Dose: 2 mg Nitrofurantoin Macrocrystals (Macrobid) 100 mg PO Q12H LISA PRN Reason: Protocol Stop: 04/10/18 10:01 Last Admin: 04/07/18 10:22 Dose: 100 mg Pantoprazole Sodium (Protonix Inj) 40 mg IVP Q12H [facility] Last Admin: 04/07/18 09:53 Dose: Not Given - Labs Labs: 04/07/18 11:09 04/06/18 07:16 PT 11.8 SECONDS (9.7-12.2) 04/04/18 11:57 INR 1.1 04/04/18 11:57 APTT 30 SECONDS (21-34) 04/04/18 11:57 - Constitutional Appears: No Acute Distress - Head Exam Head Exam: ATRAUMATIC, NORMOCEPHALIC - Eye Exam Eye Exam: EOMI, PERRL - Neck Exam Neck Exam: absent: Lymphadenopathy, Thyromegaly - Respiratory Exam Respiratory Exam: NORMAL BREATHING PATTERN. absent: Rales, Rhonchi, Wheezes - Cardiovascular Exam Cardiovascular Exam: REGULAR RHYTHM, +S2. absent: Gallop, Rubs, Murmur - GI/Abdominal Exam GI & Abdominal Exam: Soft, Normal Bowel Sounds. absent: Tenderness, Mass, Organomegaly - Rectal Exam Rectal Exam: Deferred - Extremities Exam Extremities Exam: absent: Calf Tenderness, Pedal Edema Assessment and Plan (1) Rectal bleeding Assessment & Plan: Patient received one unit of PRBCs overnight, and the HGB obinna from 7.9 to 9.9. Will follow CBC. Possible colonoscopy if bleeding continues. Status: Acute
--- NOTE | 2018-04-07 21:33 | CP.PCM.PN ---
Subjective - Date & Time of Evaluation Date of Evaluation: 04/07/18 Time of Evaluation: 21:31 - Subjective Subjective: pt had some bleeding this am mild abdominal joshi no fever spoke to oncology will f/u with GI for further treatment Objective - Vital Signs/Intake and Output Vital Signs (last 24 hours): Temp Pulse Resp BP Pulse Ox 98 F 72 18 125/70 99 04/07/18 17:33 04/07/18 17:33 04/07/18 17:33 04/07/18 17:33 04/07/18 16:00 Intake and Output: 04/07/18 04/08/18 18:59 06:59 Intake Total 900 Balance 900 - Medications Medications: Current Medications Home Med (Patient's Own Medication) 1 tab PO DAILY [facility] Stop: 04/26/18 22:16 Sodium Chloride (Sodium Chloride 0.9%) 1,000 mls @ 40 mls/hr IV .Q24H [facility] Last Admin: 04/07/18 09:54 Dose: Not Given Lopinavir/Ritonavir (Kaletra 200-50 Mg) 2 cap PO BID LISA PRN Reason: Protocol Stop: 04/26/18 10:01 Last Admin: 04/07/18 17:31 Dose: 2 cap Morphine Sulfate (Morphine) 2 mg IVP Q8 PRN PRN Reason: Pain, moderate (4-7) Last Admin: 04/05/18 14:43 Dose: 2 mg Nitrofurantoin Macrocrystals (Macrobid) 100 mg PO Q12H [facility]ISA PRN Reason: Protocol Stop: 04/10/18 10:01 Last Admin: 04/07/18 10:22 Dose: 100 mg Pantoprazole Sodium (Protonix Inj) 40 mg IVP Q12H [facility] Last Admin: 04/07/18 09:53 Dose: Not Given - Labs Labs: 04/07/18 11:09 04/06/18 07:16 PT 11.8 SECONDS (9.7-12.2) 04/04/18 11:57 INR 1.1 04/04/18 11:57 APTT 30 SECONDS (21-34) 04/04/18 11:57
[2018-04-08] MEDS: Sodium Chloride 0.9% 1,000 ML IV SCH ×2 (03:30→09:42)
[2018-04-08 07:29] LABS: BASO % 0.3 % (0.0-2.0); EOS # 0.1 K/uL (0.0-0.7); LYMPH # 0.8 K/uL (1.0-4.3); LYMPH % 23.1 % (20.0-40.0); MEAN CELL VOLUME 88.7 fL (81.0-99.0); MEAN CORPUSCULAR HEMOGLOBIN 30.2 pg (27.0-31.0); MEAN PLATELET VOLUME 9.5 fL (7.2-11.7); MONO # 0.3 K/uL (0.0-0.8); MONO % 9.9 % (0.0-10.0); NEUT # 2.1 K/uL (1.8-7.0); NEUT % 63.7 % (50.0-75.0); NRBC % 0.6 % (0.0-2.0); RBC 3.63 Mil/uL (3.80-5.20); RED CELL DISTRIBUTION WIDTH 13.5 % (11.5-14.5); WHITE BLOOD COUNT 3.3 K/uL (4.8-10.8)
[2018-04-08] MEDS: Lopinavir/Ritonavir Tab PO SCH ×2 (09:42→17:54)
--- NOTE | 2018-04-08 17:41 | CP.PCM.PN ---
Subjective - Date & Time of Evaluation Date of Evaluation: 04/08/18 Time of Evaluation: 17:38 - Subjective Subjective: Patient continues to pass small amounts of blood per rectum. The lower abdominal pain is less severe. She is tolerating the liquid diet, and she denies havng nausea and vomiting. Objective - Vital Signs/Intake and Output Vital Signs (last 24 hours): Temp Pulse Resp BP Pulse Ox 98.4 F 70 20 120/61 98 04/08/18 15:39 04/08/18 15:39 04/08/18 15:39 04/08/18 15:39 04/08/18 15:39 Intake and Output: 04/08/18 04/08/18 06:59 18:59 Intake Total 720 800 Balance 720 800 - Medications Medications: Current Medications Home Med (Patient's Own Medication) 1 tab PO DAILY [facility] Stop: 04/26/18 22:16 Last Admin: 04/08/18 09:42 Dose: 1 tab Sodium Chloride (Sodium Chloride 0.9%) 1,000 mls @ 40 mls/hr IV .Q24H [facility] Last Admin: 04/08/18 09:42 Dose: Not Given Lopinavir/Ritonavir (Kaletra 200-50 Mg) 2 cap PO BID LISA PRN Reason: Protocol Stop: 04/26/18 10:01 Last Admin: 04/08/18 09:42 Dose: 2 cap Morphine Sulfate (Morphine) 2 mg IVP Q8 PRN PRN Reason: Pain, moderate (4-7) Last Admin: 04/05/18 14:43 Dose: 2 mg Nitrofurantoin Macrocrystals (Macrobid) 100 mg PO Q12H [facility] PRN Reason: Protocol Stop: 04/10/18 10:01 Last Admin: 04/08/18 09:42 Dose: 100 mg Pantoprazole Sodium (Protonix Inj) 40 mg IVP Q12H [facility] Last Admin: 04/08/18 08:32 Dose: 40 mg - Labs Labs: 04/08/18 07:08 04/06/18 07:16 PT 11.8 SECONDS (9.7-12.2) 04/04/18 11:57 INR 1.1 04/04/18 11:57 APTT 30 SECONDS (21-34) 04/04/18 11:57 - Constitutional Appears: No Acute Distress - Head Exam Head Exam: ATRAUMATIC, NORMOCEPHALIC - Eye Exam Eye Exam: EOMI, PERRL - Neck Exam Neck Exam: absent: Lymphadenopathy, Thyromegaly - Respiratory Exam Respiratory Exam: NORMAL BREATHING PATTERN. absent: Rales, Rhonchi, Wheezes - Cardiovascular Exam Cardiovascular Exam: REGULAR RHYTHM, +S1, +S2. absent: Gallop, Rubs, Murmur - GI/Abdominal Exam GI & Abdominal Exam: Soft, Normal Bowel Sounds. absent: Tenderness, Mass, Organomegaly - Rectal Exam Rectal Exam: Deferred - Extremities Exam Extremities Exam: absent: Calf Tenderness, Pedal Edema Assessment and Plan (1) Rectal bleeding Assessment & Plan: Patient continues to pass small amounts of blood, but the amount seems smaller. The HGB after two units increased from 7.9 to 11.0. Will observe. Possible colonoscopy later this week. Status: Acute
--- NOTE | 2018-04-08 22:28 | CP.PCM.PN ---
Subjective - Date & Time of Evaluation Date of Evaluation: 04/08/18 Time of Evaluation: 17:23 - Subjective Subjective: Patient still continues to have a bleeding rectally. Entry time she goes to the bathroom there is a minimal bleeding noted. But no symptoms noted Clinical examination is unremarkable. Vital signs stable. Labs reviewed in Nonspecific Assessment: 83-year-old female with a history of HIV, rectal cancer. Status post radiation. Now having bleeding. Possibly sigmoidoscopy planned. Continue to monitor H&H and will follow the patient Objective - Vital Signs/Intake and Output Vital Signs (last 24 hours): Temp Pulse Resp BP Pulse Ox 98.4 F 70 20 120/61 98 04/08/18 15:39 04/08/18 15:39 04/08/18 15:39 04/08/18 15:39 04/08/18 15:39 Intake and Output: 04/08/18 04/09/18 18:59 06:59 Intake Total 800 Balance 800 - Medications Medications: Current Medications Home Med (Patient's Own Medication) 1 tab PO DAILY [facility] Stop: 04/26/18 22:16 Last Admin: 04/08/18 09:42 Dose: 1 tab Sodium Chloride (Sodium Chloride 0.9%) 1,000 mls @ 40 mls/hr IV .Q24H [facility] Last Admin: 04/08/18 09:42 Dose: Not Given Lopinavir/Ritonavir (Kaletra 200-50 Mg) 2 cap PO BID [facility] PRN Reason: Protocol Stop: 04/26/18 10:01 Last Admin: 04/08/18 17:54 Dose: 2 cap Morphine Sulfate (Morphine) 2 mg IVP Q8 PRN PRN Reason: Pain, moderate (4-7) Last Admin: 04/05/18 14:43 Dose: 2 mg Nitrofurantoin Macrocrystals (Macrobid) 100 mg PO Q12H [facility] PRN Reason: Protocol Stop: 04/10/18 10:01 Last Admin: 04/08/18 21:06 Dose: 100 mg Pantoprazole Sodium (Protonix Inj) 40 mg IVP Q12H [facility] Last Admin: 04/08/18 21:05 Dose: 40 mg - Labs Labs: 04/08/18 07:08 04/06/18 07:16 PT 11.8 SECONDS (9.7-12.2) 04/04/18 11:57 INR 1.1 04/04/18 11:57 APTT 30 SECONDS (21-34) 04/04/18 11:57
[2018-04-09] MEDS: Sodium Chloride 0.9% 1,000 ML IV SCH ×2 (05:00→10:46)
[2018-04-09 09:02] LABS: BASO % 0.5 % (0.0-2.0); EOS # 0.1 K/uL (0.0-0.7); EOS % 3.3 % (0.0-4.0); HEMOGLOBIN 11.1 g/dL (11.0-16.0); LYMPH # 0.8 K/uL (1.0-4.3); LYMPH % 31.6 % (20.0-40.0); MEAN CELL VOLUME 88.3 fL (81.0-99.0); MEAN PLATELET VOLUME 9.3 fL (7.2-11.7); MONO # 0.3 K/uL (0.0-0.8); MONO % 12.1 % (0.0-10.0); NEUT # 1.4 K/uL (1.8-7.0); NEUT % 52.5 % (50.0-75.0); NRBC % 0.2 % (0.0-2.0); RBC 3.69 Mil/uL (3.80-5.20); RED CELL DISTRIBUTION WIDTH 13.8 % (11.5-14.5); WHITE BLOOD COUNT 2.6 K/uL (4.8-10.8)
[2018-04-09] MEDS ORDERED: Gadodiamide 287 mg/ml 20 ml IV ONE (10:00)
[2018-04-09] MEDS: Lopinavir/Ritonavir Tab PO SCH ×2 (10:45→18:35)
--- NOTE | 2018-04-09 13:49 | MRI ---
Date of service: 04/09/2018 PROCEDURE: MRI pelvis HISTORY: F/U rectal mass COMPARISON: CT abdomen/pelvis 04/04/2018 TECHNIQUE: Multi planar multi sequence imaging of the pelvis was performed with and without intravenous gadolinium administration. FINDINGS: There is diffuse mural thickening of the inferior rectum circumferential E. there is enhancement of the rectal wall, of questionable significance. In addition, at the 11 o'clock position anteriorly, there is a mass which is intermediate signal on T2 weighted images and T1 weighted images and enhances following gadolinium administration. It is not clear whether this mass arises from the rectal wall or from the vagina immediately anterior to it. This may also represent an enlarged perirectal lymph node. This may show mass effect upon the enteral lateral rectal wall. There is no other discrete mass identified. There is enhancement of the perirectal soft tissues. The findings may reflect a proctitis. On CT examination of 04/04/2018, there is asymmetric enlargement or edema of the left levator muscle. This is not evident on current examination. The findings may reflect a proctitis. Please correlate clinically. There is no pelvic sidewall lymphadenopathy. There is no ascites. IMPRESSION: Circumferential mural thickening of the inferior rectum. There is a soft tissue mass apparently arising from the rib right antral lateral wall of the rectum though its organ of origin is not certain, as indicated above. Findings may indicate a proctitis. This is also concerning for rectal neoplasm. It is possible that the mass apparently arising from the right anterolateral wall of the rectum may in fact be arising from the vagina. This may also represent a perirectal lymph node. The differentiation is not clear on the basis of this examination.
[2018-04-09] MEDS: Pantoprazole 40 mg EC Tab PO SCH (14:43)
--- NOTE | 2018-04-09 17:21 | CP.PCM.PN ---
Subjective - Date & Time of Evaluation Date of Evaluation: 04/09/18 Time of Evaluation: 17:18 - Subjective Subjective: Patient states that the abdominal pain and bleeding are essentially unchanged. Hemoglobin from today is 11.1, unchanged from yesterday. She denies having nausea and vomiting. Objective - Vital Signs/Intake and Output Vital Signs (last 24 hours): Temp Pulse Resp BP Pulse Ox 98.1 F 71 20 125/65 99 04/09/18 15:00 04/09/18 15:00 04/09/18 15:00 04/09/18 15:00 04/09/18 15:00 Intake and Output: 04/09/18 04/09/18 06:59 18:59 Intake Total 620 360 Balance 620 360 - Medications Medications: Current Medications Home Med (Patient's Own Medication) 1 tab PO DAILY [facility] Stop: 04/26/18 22:16 Last Admin: 04/09/18 10:45 Dose: 1 tab Sodium Chloride (Sodium Chloride 0.9%) 1,000 mls @ 40 mls/hr IV .Q24H [facility] Last Admin: 04/09/18 10:46 Dose: Not Given Lopinavir/Ritonavir (Kaletra 200-50 Mg) 2 cap PO BID [facility]ISA PRN Reason: Protocol Stop: 04/26/18 10:01 Last Admin: 04/09/18 10:45 Dose: 2 cap Morphine Sulfate (Morphine) 2 mg IVP Q8 PRN PRN Reason: Pain, moderate (4-7) Last Admin: 04/05/18 14:43 Dose: 2 mg Nitrofurantoin Macrocrystals (Macrobid) 100 mg PO Q12H [facility] PRN Reason: Protocol Stop: 04/10/18 10:01 Last Admin: 04/09/18 10:45 Dose: 100 mg Pantoprazole Sodium (Protonix Ec Tab) 40 mg PO Q12H [facility] Last Admin: 04/09/18 14:43 Dose: 40 mg - Labs Labs: 04/09/18 08:40 04/06/18 07:16 PT 11.8 SECONDS (9.7-12.2) 04/04/18 11:57 INR 1.1 04/04/18 11:57 APTT 30 SECONDS (21-34) 04/04/18 11:57 - Constitutional Appears: No Acute Distress - Head Exam Head Exam: ATRAUMATIC, NORMOCEPHALIC - Eye Exam Eye Exam: EOMI, PERRL - Neck Exam Neck Exam: absent: Lymphadenopathy, Thyromegaly - Respiratory Exam Respiratory Exam: NORMAL BREATHING PATTERN. absent: Rales, Rhonchi, Wheezes - Cardiovascular Exam Cardiovascular Exam: REGULAR RHYTHM, +S1, +S2. absent: Gallop, Rubs, Murmur - GI/Abdominal Exam GI & Abdominal Exam: Soft, Tenderness, Normal Bowel Sounds. absent: Mass, Organomegaly Additional comments: Mild tenderness diffusely - Rectal Exam Rectal Exam: Deferred - Extremities Exam Extremities Exam: absent: Calf Tenderness, Pedal Edema Assessment and Plan (1) Rectal bleeding Assessment & Plan: MRI of the pelvis showed thckening of the distal rectm and possible soft tissue mass along the right anterolateral wall. Hemoglobin is stable, suggesting that the rate of blood loss is slowing. Will prep patient tonight and perform proctosigmoidoscopy - with minimal air insufflation - tomorrow. Status: Acute
[2018-04-09] MEDS ORDERED: Peg-Electrolyte Oral Soln 4L (Golytely) PO ONE (18:00)
--- NOTE | 2018-04-09 23:45 | CP.PCM.PN ---
Subjective - Date & Time of Evaluation Date of Evaluation: 04/09/18 Time of Evaluation: 23:45 - Subjective Subjective: Patient still continues to have a bleeding rectally. Entry time she goes to the bathroom there is a minimal bleeding noted. But no symptoms noted Clinical examination is unremarkable. Vital signs stable. Labs reviewed in Nonspecific Assessment: 83-year-old female with a history of HIV, rectal cancer. Status post radiation. Now having bleeding. Possibly sigmoidoscopy planned in am Continue to monitor H&H and will follow the patient Objective - Vital Signs/Intake and Output Vital Signs (last 24 hours): Temp Pulse Resp BP Pulse Ox 98.1 F 71 20 125/65 99 04/09/18 15:00 04/09/18 15:00 04/09/18 15:00 04/09/18 15:00 04/09/18 15:00 Intake and Output: 04/09/18 04/10/18 18:59 06:59 Intake Total 360 Balance 360 - Medications Medications: Current Medications Home Med (Patient's Own Medication) 1 tab PO DAILY [facility] Stop: 04/26/18 22:16 Last Admin: 04/09/18 10:45 Dose: 1 tab Sodium Chloride (Sodium Chloride 0.9%) 1,000 mls @ 40 mls/hr IV .Q24H [facility] Last Admin: 04/09/18 10:46 Dose: Not Given Lopinavir/Ritonavir (Kaletra 200-50 Mg) 2 cap PO BID [facility] PRN Reason: Protocol Stop: 04/26/18 10:01 Last Admin: 04/09/18 18:35 Dose: 2 cap Morphine Sulfate (Morphine) 2 mg IVP Q8 PRN PRN Reason: Pain, moderate (4-7) Last Admin: 04/09/18 22:20 Dose: 2 mg Nitrofurantoin Macrocrystals (Macrobid) 100 mg PO Q12H [facility] PRN Reason: Protocol Stop: 04/10/18 10:01 Last Admin: 04/09/18 21:35 Dose: 100 mg Pantoprazole Sodium (Protonix Ec Tab) 40 mg PO Q12H [facility] Last Admin: 04/09/18 14:43 Dose: 40 mg Polyethylene Glycol/Electrolytes (Golytely) 2,000 ml PO ONCE ONE Stop: 04/10/18 06:01 - Labs Labs: 04/09/18 08:40 04/06/18 07:16 PT 11.8 SECONDS (9.7-12.2) 04/04/18 11:57 INR 1.1 04/04/18 11:57 APTT 30 SECONDS (21-34) 04/04/18 11:57
[2018-04-10] MEDS: Pantoprazole 40 mg EC Tab PO SCH ×2 (01:45→13:32)
[2018-04-10] MEDS ORDERED: Peg-Electrolyte Oral Soln 4L (Golytely) PO ONE (06:00)
[2018-04-10] MEDS: Sodium Chloride 0.9% 1,000 ML IV SCH (10:43)
[2018-04-10] MEDS: Lopinavir/Ritonavir Tab PO SCH (10:43)
[2018-04-10 11:06] LABS: PLT(ADP) 22 K/uL
[2018-04-10 11:07] LABS: FUNCTIONING PLTS 183 K/uL; PLT BASE COUNT 205 K/uL
[2018-04-10 11:09] LABS: BASO % 0.3 % (0.0-2.0); EOS % 0.2 % (0.0-4.0); HEMOGLOBIN 11.3 g/dL (11.0-16.0); LYMPH # 0.7 K/uL (1.0-4.3); LYMPH % 11.1 % (20.0-40.0); MEAN CELL VOLUME 88.8 fL (81.0-99.0); MEAN CORPUSCULAR HEMOGLOBIN 29.9 pg (27.0-31.0); MEAN CORPUSCULAR HGB CONC 33.7 g/dL (33.0-37.0); MEAN PLATELET VOLUME 9.1 fL (7.2-11.7); MONO # 0.4 K/uL (0.0-0.8); MONO % 7.5 % (0.0-10.0); NEUT # 4.8 K/uL (1.8-7.0); NEUT % 80.9 % (50.0-75.0); NRBC % 0.1 % (0.0-2.0); RBC 3.76 Mil/uL (3.80-5.20); RED CELL DISTRIBUTION WIDTH 13.7 % (11.5-14.5)
[2018-04-10 11:11] LABS: INR 1.1; PROTHROMBIN TIME 12.4 SECONDS (9.7-12.2)
[2018-04-10 11:12] LABS: WHITE BLOOD COUNT 5.9 K/uL (4.8-10.8)
[2018-04-10 11:45] LABS: ALB/GLOB RATIO 1.5 (1.0-2.1); ALBUMIN 3.9 g/dL (3.5-5.0); ALT/SGPT 33 U/L (9-52); AST/SGOT 30 U/L (14-36); BLOOD UREA NITROGEN 6 mg/dL (7-17); CALCIUM 8.7 mg/dl (8.6-10.4); GFR NON-AFRICAN AMERICAN > 60
[2018-04-10] MEDS ORDERED: Propofol 10 mg/ml Inj (20 ML) ONE (14:48)
[2018-04-10 16:10] VITALS: RESP 20; O2SAT 96
[2018-04-11] MEDS: Pantoprazole 40 mg EC Tab PO SCH (01:45)
[2018-04-11 07:18] VITALS: BP 114/61; PULSE 86; TEMP 99.4
[2018-04-11 07:41] LABS: BASO % 0.6 % (0.0-2.0); EOS # 0.1 K/uL (0.0-0.7); HEMOGLOBIN 10.3 g/dL (11.0-16.0); LYMPH # 0.8 K/uL (1.0-4.3); LYMPH % 30.8 % (20.0-40.0); MEAN CELL VOLUME 89.3 fL (81.0-99.0); MEAN CORPUSCULAR HEMOGLOBIN 30.5 pg (27.0-31.0); MEAN CORPUSCULAR HGB CONC 34.1 g/dL (33.0-37.0); MEAN PLATELET VOLUME 9.3 fL (7.2-11.7); MONO # 0.3 K/uL (0.0-0.8); MONO % 11.7 % (0.0-10.0); NEUT # 1.4 K/uL (1.8-7.0); NEUT % 53.9 % (50.0-75.0); NRBC % 0.1 % (0.0-2.0); RBC 3.37 Mil/uL (3.80-5.20); RED CELL DISTRIBUTION WIDTH 13.8 % (11.5-14.5)
--- NOTE | 2018-04-11 07:44 | CP.PCM.PN ---
Subjective - Date & Time of Evaluation Date of Evaluation: 04/11/18 Time of Evaluation: 07:41 - Subjective Subjective: Patient continues to pass small amounts of blood per rectum. She states that the abdominal pain has resolved. She denies having nausea and vomiting. Objective - Vital Signs/Intake and Output Vital Signs (last 24 hours): Temp Pulse Resp BP Pulse Ox 99.4 F 86 20 114/61 96 04/11/18 07:17 04/11/18 07:17 04/11/18 07:17 04/11/18 07:17 04/11/18 07:17 Intake and Output: 04/11/18 04/11/18 06:59 18:59 Intake Total 1380 Balance 1380 - Medications Medications: Current Medications Home Med (Patient's Own Medication) 1 tab PO DAILY [facility] Stop: 04/26/18 22:16 Last Admin: 04/10/18 10:43 Dose: 1 tab Sodium Chloride (Sodium Chloride 0.9%) 1,000 mls @ 40 mls/hr IV .Q24H [facility] Last Admin: 04/10/18 10:43 Dose: 40 mls/hr Morphine Sulfate (Morphine) 2 mg IVP Q8 PRN PRN Reason: Pain, moderate (4-7) Last Admin: 04/11/18 01:49 Dose: 2 mg Pantoprazole Sodium (Protonix Ec Tab) 40 mg PO Q12H [facility] Last Admin: 04/11/18 01:45 Dose: 40 mg - Labs Labs: 04/10/18 11:00 04/10/18 11:00 PT 12.4 SECONDS (9.7-12.2) H 04/10/18 11:00 INR 1.1 04/10/18 11:00 APTT 30 SECONDS (21-34) 04/04/18 11:57 - Constitutional Appears: No Acute Distress - Head Exam Head Exam: ATRAUMATIC, NORMOCEPHALIC - Eye Exam Eye Exam: EOMI, PERRL - Neck Exam Neck Exam: absent: Lymphadenopathy, Thyromegaly - Respiratory Exam Respiratory Exam: NORMAL BREATHING PATTERN. absent: Rales, Rhonchi, Wheezes - Cardiovascular Exam Cardiovascular Exam: REGULAR RHYTHM, +S1, +S2. absent: Gallop, Rubs, Murmur - GI/Abdominal Exam GI & Abdominal Exam: Soft, Normal Bowel Sounds. absent: Tenderness, Mass, Organomegaly - Rectal Exam Rectal Exam: Deferred - Extremities Exam Extremities Exam: absent: Calf Tenderness, Pedal Edema Assessment and Plan (1) Rectal bleeding Assessment & Plan: Patient continues to bleed, but HGB has been stable since transfusion. The CBC from today is still pending. Proctoscopy showed that the source of bleeding is ulceration of the anorectal mass, Recommend stool softeners. Status: Acute
[2018-04-11 07:51] LABS: WHITE BLOOD COUNT 2.6 K/uL (4.8-10.8)
[2018-04-11 07:58] LABS: ALB/GLOB RATIO 1.4 (1.0-2.1); ALT/SGPT 26 U/L (9-52); AST/SGOT 25 U/L (14-36); BLOOD UREA NITROGEN 5 mg/dL (7-17); GFR NON-AFRICAN AMERICAN > 60
[2018-04-11] MEDS: Sodium Chloride 0.9% 1,000 ML IV SCH (09:19)
--- NOTE | 2018-04-11 23:28 | CON ---
Copied To: Josep Méndez MD Attending MD: Josep Méndez MD DATE: 04/11/2018 ONCOLOGY CONSULTATION HISTORY OF PRESENT ILLNESS: This is an 83-year-old woman with known rectal carcinoma, squamous carcinoma of the rectum. I saw her on 01/29/2018, initial consultation, we arranged for Xeloda to be given twice a day, Saturday to Saturday, for the seven-week on radiation therapy with DrAngelito . She missed virtually every appointments afterwards other than 03/20 when she had to come back and she was towards the end of her radiation therapy. I asked her if she is actually taking her pills, she said "yes." In any event, she states that she has 3 more radiation therapies to do a week and a half ago when she started developing rectal bleeding, and evidently, she was admitted to the hospital 5 days ago, and she had the colonoscopy which shows the persisting cancer. She is packing up to go home today. PHYSICAL EXAMINATION: SKIN: No petechiae, no bruise. HEENT: Anicteric. NODES: Nonpalpable. LUNGS: Clear at present. HEART: S1 and S2. ABDOMEN: Shows no liver, no spleen. No tenderness. EXTREMITIES: No edema. CENTRAL NERVOUS SYSTEM: No focal findings. She is scheduled to see Dr. Vanegas next week. I am going to see her on 04/21/2018, but I told the nurse practitioner here at the hospital, and I advised that she get a surgical consult to be operated on as soon as possible. Josep Méndez MD
--- NOTE | 2018-05-12 22:24 | PN ---
Copied To: Christopher Argueta MD Attending MD: Christopher Argueta MD DATE: 04/10/2018 SUBJECTIVE: Seen by me at 8:30 p.m. The patient's family was at bedside. I spoke to the patient's family also. The patient is comfortable, not in any distress. The patient underwent colonoscopy screening today. Colonoscopy finding: There is anal mass noted, but no active bleeding noted. Clinical examination is unremarkable. We will continue to monitor the H and H. If the patient is stable, possible discharge plan tomorrow. FINAL DIAGNOSES: Acute rectal bleeding secondary to radiation induced. The patient has anal carcinoma, human immunodeficiency virus, and hypertension. She will be closely monitored and will plan for discharge possibly tomorrow. Christopher Argueta MD
--- NOTE | 2018-05-13 07:31 | DS ---
Copied To: Christopher Argueta MD Attending MD: Christopher Argueta MD HISTORY OF PRESENT ILLNESS: An 83-year-old female with history of diabetes, gastritis, HIV positive, hypertension, hypercholesterolemia, recently diagnosed with anal carcinoma, and also currently receiving radiation treatment. The patient was admitted to the hospital with worsening abdominal pain pelvic area, associated with diarrhea and also increasing bleeding noted. The patient was unable to go to the radiation treatment and because of the worsening bleeding, she came to the emergency room. The patient was also not able to eat and whenever she goes to the bathroom, she is having increasing bleeding. PAST MEDICAL HISTORY: Diabetes, hypertension, high cholesterol, history of asthma, and HIV, on medication. The patient recently underwent colonoscopy which was showing evidence of cancer of the anal area and currently receiving treatment. PHYSICAL EXAMINATION: GENERAL: Clinical examination is, otherwise, unremarkable. VITAL SIGNS: Stable. LABORATORY DATA: The patient's hemoglobin was continue to be monitored. COURSE IN THE HOSPITAL: The patient continued to receive IV fluid. She was kept n.p.o. H and H were closely monitored on 04/06/2018. The patient's hemoglobin dropped to 7.9 and blood transfusion was given to the patient. Then, the patient's hemoglobin was stabilized. The patient also received proton pump inhibitor. Gastroenterology evaluation, Infectious Disease evaluation, and Oncology evaluation was called in. The patient underwent colonoscopy again. There was anal cancer noted. There was no active bleeding, but friable mucosa was identified. Hemoglobin was stable. The patient clinically improved. The patient will be discharged home. Her bleeding was also subsiding, and she will follow up as an outpatient with manager organizational, oncologist, as well as infectious disease specialist. The patient will be discharged home. 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 Christopher Argueta MD
== END 2018-04-11 12:50 | disposition home or self-care (01) | DRG 374 ==
LOC: C.ER 11:11 → C.9E 17:52 → EEVIPCON 17:52 → C.3T 18:17 → OBSVTOIN 04-07 10:52
PROVIDERS: ADMIT Internal Medicine; ATTEND Internal Medicine
PROC: 0DJD8ZZ Inspection of Lower Intestinal Tract, Via Natural or Artificial Opening Endoscopic (ICD-10-PCS; principal; 2018-04-10 14:42)
DX: C21.0 Malignant neoplasm of anus, unspecified (principal); B20 Human immunodeficiency virus [HIV] disease; Z68.1 Body mass index [BMI] 19.9 or less, adult; E11.9 Type 2 diabetes mellitus without complications; I10 Essential (primary) hypertension; J45.909 Unspecified asthma, uncomplicated; K62.7 Radiation proctitis; Y84.2 Radiological procedure and radiotherapy as the cause of abnormal reaction of the patient, or of later complication, without mention of misadventure at the time of the procedure; Z92.3 Personal history of irradiation